=== PATIENT | male | born 1965 | race Caucasian/White ===

== ENCOUNTER → 2020-03-09 | Outpatient (CLI) | payer SELFPAY ==
--- NOTE | 2020-03-10 16:29 | RAD ---
EXAM DESCRIPTION: Hand,Left 3 Views CLINICAL HISTORY: INJURY OF HAND COMPARISON: None. IMPRESSION: 3 views of the left hand show no acute fracture, focal bone destruction, or joint dislocation. Mild joint space narrowing of the PIP joints of the third digit with mild subcortical cystic changes compatible with osteoarthritic changes. Electronically signed by: Jose A Tompkins MD 03/10/2020 4:27 PM [facility] [id number]
== END ==
LOC: LAB.O 12:33
PROVIDERS: ATTEND Nurse Practitioner Family
DX: S69.92XA Unspecified injury of left wrist, hand and finger(s), initial encounter (principal); M19.042 Primary osteoarthritis, left hand; L03.114 Cellulitis of left upper limb; N28.1 Cyst of kidney, acquired